=== PATIENT | male | born 1930 | race Two or more races ===

== ENCOUNTER 2016-05-19 15:29 | Emergency (ER) | payer MEDICARE, MEDICAID ==
[2016-05-19] MEDS ORDERED: Sodium Chloride 0.9% 1,000 ML IV ONE (16:09)
[2016-05-19] MEDS ORDERED: Sodium Chloride 0.9% 1,000 ML ONE (16:14)
[2016-05-19 16:21] LABS: BASO % 0.4 % (0.0-2.0); EOS % 0.4 % (0.0-4.0); HEMATOCRIT 34.3 % (35.0-51.0); LYMPH # 0.8 K/uL (1.0-4.3); LYMPH % 12.9 % (20.0-40.0); MEAN CELL VOLUME 81.4 fL (80.0-94.0); MEAN CORPUSCULAR HEMOGLOBIN 26.6 pg (27.0-31.0); MEAN CORPUSCULAR HGB CONC 32.7 g/dL (33.0-37.0); MEAN PLATELET VOLUME 7.8 fL (7.2-11.7); MONO # 0.8 K/uL (0.0-0.8); MONO % 14.2 % (0.0-10.0); NRBC % 0.6 % (0.0-2.0); RED CELL DISTRIBUTION WIDTH 20.3 % (11.5-14.5); WHITE BLOOD COUNT 5.9 K/uL (4.8-10.8)
[2016-05-19 16:28] LABS: CHLORIDE 95 mmol/L (98-107); POTASSIUM 3.9 mmol/L (3.6-5.2); SODIUM 134 mmol/L (132-148)
[2016-05-19 16:30] LABS: AST/SGOT 79 U/L (17-59); BILIRUBIN,TOTAL 1.1 mg/dL (0.2-1.3); CARBON DIOXIDE 26 mmol/L (22-30); GFR AFRICAN-AMERICAN > 60
[2016-05-19 16:31] LABS: ALB/GLOB RATIO 1.2 (1.0-2.1); ALKALINE PHOSPHATASE 168 U/L (38-126); ALT/SGPT 33 U/L (21-72); BLOOD UREA NITROGEN 12 mg/dL (9-20); GLUCOSE,RANDOM 126 mg/dL (75-110); TOTAL PROTEIN 6.7 g/dL (6.3-8.3)
[2016-05-19 16:32] LABS: URINE BACTERIA RARE (<OCC); URINE BILIRUBIN NEGATIVE (NEGATIVE); URINE BLOOD NEGATIVE (NEGATIVE); URINE COLOR Yellow (YELLOW); URINE GLUCOSE (UA) NORMAL (Normal); URINE KETONE TRACE mg/dL (NEGATIVE); URINE LEUKOCYTE ESTERASE NEG Leu/uL (Negative); URINE PROTEIN NEGATIVE (NEGATIVE); URINE UROBILINOGEN NORMAL mg/dL (0.2-1.0); WBC URINE 1 /hpf (0-5)
[2016-05-19] MEDS ORDERED: Oxycodone/Acetaminophen 5/325 mg Tab PO STA (17:05)
[2016-05-19] MEDS ORDERED: Oxycodone/Acetaminophen 5/325 mg Tab ONE (17:07)
--- NOTE | 2016-05-19 17:07 | C.PDOC ---
History Of Present Illness 86 year old male with a history of metastatic prostate cancer, presents to the ED with complaints of lower abdominal discomfort radiating down to his legs. Patient states he thought the pain was from constipation due to narcotics, however it persisted after receiving an enema. He states he completed an additional course of radiation for bone mets in March which has caused him problems including esophageal issues causing him to be unable to eat or drink which led to his weight loss, lack of appetite, and feeling weak. Patient reports the weakness and pain radiating to his legs are making it hard for him to walk. Denies fever, vomiting, or any other complaints at this time. Time Seen by Provider: 05/19/16 15:46 Chief Complaint (Nursing): Abdominal Pain History Per: Patient History/Exam Limitations: no limitations Onset/Duration Of Symptoms: Days Current Symptoms Are (Timing): Still Present Severity: Mild Radiation Of Pain To:: None Quality Of Discomfort: "Pain" Associated Symptoms: denies: Fever, Vomiting Past Medical History Reviewed: Historical Data, Nursing Documentation, Vital Signs Vital Signs: Last Vital Signs Temp 97.5 F L 05/19/16 22:31 Pulse 94 H 05/19/16 22:31 Resp 16 05/19/16 22:31 BP 121/70 05/19/16 22:31 Pulse Ox 96 05/19/16 22:31 - Medical History PMH: Benign Prostatic Hyperplasia, Malignancy Family History: States: Unknown Family Hx - Social History Hx Tobacco Use: No Hx Alcohol Use: No Hx Substance Use: No - Immunization History Hx Tetanus Toxoid Vaccination: No Hx Influenza Vaccination: No Hx Pneumococcal Vaccination: No Review Of Systems Except As Marked, All Systems Reviewed And Found Negative. Constitutional: Positive for: Weakness, Weight loss, Other (+Loss of appetite). Negative for: Fever, Chills Gastrointestinal: Positive for: Abdominal Pain. Negative for: Vomiting Physical Exam - Physical Exam Appears: Non-toxic, Chronically Ill, Other (+Frail and cachectic) Skin: Normal Color, Warm, Dry Head: Atraumatic, Normacephalic Eye(s): bilateral: Normal Inspection Oral Mucosa: Dry Chest: Symmetrical, No Deformity Cardiovascular: Rhythm Regular, No Murmur Respiratory: Normal Breath Sounds, No Accessory Muscle Use, No Rales, No Rhonchi , No Wheezing Gastrointestinal/Abdominal: Bowel Sounds (+Normal bowel sounds), Soft, No Tenderness, No Distention, No Guarding, No Rebound Extremity: Normal ROM Neurological/Psych: Oriented x3, Normal Speech, Normal Cognition ED Course And Treatment - Laboratory Results Result Diagrams: 05/19/16 16:17 05/19/16 16:17 Lab Interpretation: No Acute Changes ECG: Interpreted By Me ECG Rhythm: Sinus Rhythm (with PACs, LVH) ECG Interpretation: No Acute Changes O2 Sat by Pulse Oximetry: 100 (Room air) Pulse Ox Interpretation: Normal - Radiology CXR: Interpreted by Me CXR Interpretation: Yes: Other (Multiple nodules RLL, LLL, c/w metastatic disease.) - Other Rad CXR 2 view X-Ray: Viewed By Me, Read By Radiologist Interpretation: FINDINGS: Limitations: Limited due to overpenetrated technique. Lungs: Unremarkable. No consolidation. Mild hyperexpansion is present. Partially flattened. 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 Pleural space: Unremarkable. No pneumothorax. Heart: Unremarkable. No cardiomegaly. Mediastinum: Unremarkable. Bones/joints: Unremarkable. IMPRESSION: No acute cardiopulmonary findings. Progress Note: Blood work and urinalysis ordered and reviewed. 5:00 Patient treated with IV fluids and Percocet in emergency department. He remains comfortable. He states that he feels malnourished and depressed, claiming that he is now suicidal. He plans to "step off the platform in front of the light rail" or will come to the hospital and "do it here so we know he is serious". He states that he did tell Dr Perez that he was depressed on his last visit. Crisis asked to evaluated patient. Reevaluation Time: 20:09 Reassessment Condition: Unchanged (Patient is medically cleared for psychiatric evaluation. He will br transferred to [facility].) Disposition - Disposition Disposition: Trans to Other Acute Care Hosp Disposition Time: 22:58 Condition: STABLE - Clinical Impression Clinical Impression: Prostate cancer metastatic to bone, Depression due to physical illness - Scribe Statement The provider has reviewed the documentation as recorded by the Scribe aYn Pichardo. Provider Attestation: All medical record entries made by the Scribe were at my direction and personally dictated by me. I have reviewed the chart and agree that the record accurately reflects my personal performance of the history, physical exam, medical decision making, and the department course for this patient. I have also personally directed, reviewed, and agree with the discharge instructions and disposition.
[2016-05-19 22:32] VITALS: BP 121/70; PULSE 94; RESP 16; TEMP 97.5
[2016-05-19 22:58] VITALS: O2SAT 100
--- NOTE | 2016-05-20 10:21 | RAD ---
HISTORY: med clearance COMPARISON: 11/10/2013 TECHNIQUE: Chest PA and lateral FINDINGS: LUNGS: There is minimal linear scarring at the right lung base. The lungs are otherwise clear PLEURA: No significant pleural effusion identified. No pneumothorax apparent. CARDIOVASCULAR: Normal. OSSEOUS STRUCTURES: No significant abnormalities. VISUALIZED UPPER ABDOMEN: Normal. OTHER FINDINGS: None. IMPRESSION: No active disease.
--- NOTE | 2016-05-20 21:28 | CARD ---
APPROVED REPORT EKG Measurement Heart [id number] <Conclusion> Sinus rhythm with premature atrial complexes Voltage criteria for left ventricular hypertrophy Nonspecific T wave abnormality Abnormal ECG
== END 2016-05-19 23:11 | disposition short-term general hospital (02) ==
LOC: C.ER 15:29
DX: F32.89 Other specified depressive episodes (principal); C79.51 Secondary malignant neoplasm of bone; C61 Malignant neoplasm of prostate
CPT/HCPCS: 71020; 80053; 81001; 85025; 93005; 96360; 99285; G0480; J7040